=== PATIENT | female | born 1965 | race Two or more races ===

== ENCOUNTER 2025-07-22 15:07 | Emergency (ER) | payer OTHER ==
[~2025-07-22] VITALS: Ht 149.9 cm; Wt 71.3 kg
[2025-07-22 15:38] VITALS: BP 158/82; PULSE 96; RESP 18; TEMP 98.3; O2SAT 99
--- NOTE | 2025-07-22 15:41 | ED.PDOC ---
Back pain HPI HPI Comments A 60 YEAR OLD FEMALE PRESENTS TO THE ED WITH COMPLAINT OF LOWER BACK PAIN. PATIENT STATES SHE HAS BEEN EXPERIENCING LOWER BACK PAIN THAT RADIATES DOWN HER BILATERAL LEGS FOR THE PAST 2 MONTHS. PATIENT REPORTS SHE HAS ALSO BEEN EXPERIENCING PAINFUL URINATION OFF AND ON FOR THE PAST 2 MONTHS. PATIENT DENIES SADDLE ANESTHESIA, URINARY INCONTINENCE, BOWEL INCONTINENCE, HEMATURIA, FLANK PAIN, FEVER, CHILLS, SHORTNESS OF BREATH, CHEST PAIN, ABDOMINAL PAIN, NAUSEA, VOMITING, HEADACHE, OR OTHER COMPLAINTS. NO OTHER SYMPTOMS OR MODIFYING FACTORS AT THIS TIME. PATIENT IS ALERT, ORIENTED X 4, AND HAS STEADY GAIT. Chief Complaint: Back Pain Time Seen by MD: 15:10 Reviewed Notes: Nurses Notes, Medications, Allergies Allergies: Coded Allergies: NO KNOWN ALLERGIES (Unverified , 07/22/25) Home Meds Active Scripts Sulfamethoxazole W/Trimethopri (Bactrim Ds Tablet) 1 Tab Tb, 1 TAB PO BID for 7 Days, #14 TAB Prov:LON CRUZ 07/22/25 Ibuprofen (Ibuprofen) 800 Mg Tab, 1 TAB PO TID, #30 TAB Prov:LON CRUZ 07/22/25 Information Source: Patient Mode of Arrival: Ambulatory Timing: Months Duration: Intermittent Location of Back pain: (B) Lumbar Radiates to: Anterior: (B) Buttocks, (B) Calf, (B) Thigh Radiates to: Posterior: (B) Buttocks, (B) Calf, (B) Thigh Radiates to: Medial: (R) Calf, (B) Calf, (B) Thigh Radiates to: Lateral: (B) Buttocks, (B) Calf, (B) Thigh Severity: Moderate Prehospital treatment: None Quality: Aching, Cramping Onset: Spontaneous History of: None Modifying Factors: Movement Associated signs and symptoms: None Past Medical History PAST MEDICAL HISTORY: HTN Surgical History: Denies all surgeries ASSEMBLY LEADER History: No Pertinent ASSEMBLY LEADER History Family History Family History: Reviewed,noncontributory to illness Social History Smoker: Non-Smoker Alcohol: Denies ETOH Use Drugs: Denies Drug Use Lives In: Home Constitutional: denies: chills, diaphoresis, fatigue, fever, malaise, sweats, weakness, others EENTM: denies: blurred vision, double vision, ear bleeding, ear discharge, ear drainage, ear pain, ear ringing, eye pain, eye redness, hearing loss, mouth pain, mouth swelling, nasal discharge, nose bleeding, nose congestion, nose pain, photophobia, tearing, throat pain, throat swelling, voice changes, others Respiratory: denies: cough, hemoptysis, orthopnea, SOB at rest, shortness of breath, SOB with excertion, stridor, wheezing, others Cardiovascular: denies: chest pain, dizzy spells, diaphoresis, Dyspnea on exertion, edema, irregular heart beat, left arm pain, lightheadedness, palpitations, PND, syncope, others Gastrointestinal: denies: abdomen distended, abdominal pain, blood streaked bowels, constipated, diarrhea, dysphagia, difficulty swallowing, hematemesis, melena, nausea, poor appetite, poor fluid intake, rectal bleeding, rectal pain, vomiting, others Genitourinary: reports: burning, dysuria; denies: abnormal vagina bleeding, dyspareunia, flank pain, frequency, hematuria, incontinence, pain, , vagina discharge, urgency, others Neurological: denies: dizziness, fainting, headache, left sided numbness, left sided weakness, numbness, paresthesia, pre-existing deficit, right sided numbness, right sided weakness, seizure, speech problems, tingling, tremors, weakness, others Musculoskeletal: reports: back pain, muscle pain; denies: gout, joint pain, joint swelling, muscle stiffness, neck pain, others Integumetry: denies: bruises, change in color, change in hair/nails, dryness, laceration, lesions, lumps, rash, wounds, others Allergic/Immunocompromised: denies: Difficulty Healing, Frequent Infections, Hives, Itching, others Hematologic/Lymphatic: denies: anemia, blood clots, easy bleeding, easy bruisi ng, swollen glands, others Endocrine: denies: excessive hunger, excessive sweating, excessive thirst, exce ssive urination, flushing, intolerance to cold, intolerance to heat, unexplained weight gain, unexplained weight loss, others Psychiatric: denies: anxiety, bipolar disorder, depression, hopeless, panic disorder, schizophrenia, sleepless, suicidal, others All Other Systems: Reviewed and Negative Physical Exam General Appearance: No Apparent Distress, Normal HEENT: Normal ENT Inspection, PERRL/EOMI, Pharynx Normal, TMs Normal Neck: Full Range of Motion, Non-Tender, Normal, Normal Inspection Respiratory: Chest Non-Tender, Lungs Clear, No Accessory Muscle Use, No Respiratory Distress, Normal Breath Sounds Cardiovascular: No Edema, No JVD, No Murmur, No Gallop, Normal Peripheral Pulses, Regular Rate/Rhythm Breast Exam: Deferred Gastrointestinal: No Organomegaly, Non Tender, No Pulsatile Mass, Normal Bowel Sounds, Soft Genitalia: Deferred Pelvic: Deferred Rectal: Deferred Extremities: No calf tenderness, Normal capillary refill, Normal inspection, Normal range of motion, Non-tender, No pedal edema Musculoskeletal : Location: Bilateral Extremity Location: Back Apperance: Tenderness (AND MUSCLE SPASM ON LOWER BACK, NO BONY TENDERNESS, SWELLING AND DEFORMITY. NO CVA TENDERNESS. ) Neurologic: Alert, earth burner II-XII nml as Tested, No Motor Deficits, Normal Affect, Normal Mood, No Sensory Deficits Cerebellar Function: Normal Reflexes: Normal Skin: Dry, Normal Color, Warm Peripheral Pulses: 2+ carotid (R), 2+ carotid (L) Lymphatic: No Adenopathy Was a procedure done? Was a procedure done?: No Back Pain Differential Dx Differential Diagnosis: DJD, Musculoskeletal Pain, Strain Other Differential Diagnosis UTI, ACUTE CYSTITIS X-Ray, Labs, Meds, VS Vital Signs Date Time Temp Pulse Resp B/P (MAP) Pulse Ox O2 Delivery O2 Flow Rate FiO2 07/22/25 15:38 96 18 99 Room Air 07/22/25 15:38 98.3 96 18 158/82 (107) 99 98.3 07/22/25 15:09 98.3 99 18 158/82 96 98.3 Lab Test 07/22/25 15:38 Range/Units Urine Color Dark-yellow Yellow Urine Clarity Clear Clear Urine pH 6.5 5.0-9.0 Urine Specific Leopold 1.009 1.001-1.035 Urine Protein Negative Negative Urine Ketones Negative Negative Urine Blood Negative Negative /uL Urine Nitrite 1+ H Negative Urine Bilirubin Negative Negative Urine Urobilinogen Normal Negative mg/dL Urine Leukocyte Esterase Negative Negative /uL Urine RBC 2 0 - 4 /hpf Urine Microscopic WBC < 1 0-5 /HPF Urine Squamous Epithelial Cells Few <5 /hpf Urine Bacteria Few H None Seen /hpf Urine Glucose Normal Normal mg/dL Current Medications Medications (Trade) Dose Ordered Sig/Mattie Route Start Time Stop Time Status Last Admin Ketorolac Tromethamine (Toradol Injection) 60 mg ONCE ONCE IM 07/22/25 15:45 07/22/25 15:46 DC 07/22/25 15:53 ORDERING PHYSICIAN: LON CRUZ PROCEDURE(s): LUMB2 - LUMBAR SPINE 3 VIEW REASON: LOW BACK PAIN TO LOWER LEGS ORDER NUMBER(s): [id number], ACCESSION NUMBER(s): [id number] CLINICAL INDICATION: LOW BACK PAIN TO LOWER LEGS TECHNIQUE: 3 radiographic views of the lumbar spine were obtained. COMPARISON: None FINDINGS/IMPRESSION: There are no compressed vertebra. No spondylolisthesis. ATED BY: SUKH MORA Jr., DO DICTATED DATE/TIME: 07/22/251627 SIGNED BY: SUKH MORA Jr., SIGNED DATE/TIME: 07/22/251627 CC: X-Ray, Labs, Meds, VS Comment EXTERNAL MEDICAL RECORDS REVIEWED: [NONE] INDEPENDENT HISTORIANS: [NONE] SOCIAL DETERMINANTS OF HEALTH: [NONE] LABS ORDERED: UA REVIEWED AND INTERPRETED RESULTS: NITRITE 1+ IMAGING ORDERED: XR L-SPINE TREATMENTS ORDERED: TORADOL 60MG IM PROCEDURES PERFORMED: NONE CRITICAL CARE TIME: NONE I HAVE DISCUSSED THE PATIENT WITH THE ATTENDING PHYSICIAN DR. MCLAUGHLIN AND HE AGREES WITH THE PATIENT'S PLAN OF CARE AND DISPOSITION. BASED ON HISTORY OF PRESENT ILLNESS, AND PHYSICAL EXAM, PATIENT WILL BE DISCHARGED HOME. DISCUSSED PLAN FOR DISCHARGE HOME WITH RX [SEPTA DS AND IBUPROFEN 800MG]. MEDICATION WARNINGS GIVEN. SHARED DECISION MAKING: DISCUSSED WITH PATIENT THAT THEIR WORKUP WAS NORMAL. PATIENT INSTRUCTED TO FOLLOW UP WITH PRIMARY CARE PROVIDER IN 1-2 DAYS FOR RE- EVALUATION OF SYMPTOMS. PATIENT VERBALIZES UNDERSTANDING TO RETURN TO ED FOR NEW OR WORSENING SYMPTOMS OR IF FOLLOW UP WITH PCP CANNOT BE OBTAINED. PATIENT FEELS COMFORTABLE GOING HOME AT THIS TIME. ALL QUESTIONS ADDRESSED AT TIME OF DISCHARGE. Images Reviewed?: Images reviewed and evaluated by me Time of 1ST Reevaluation: 16:52 Reevaluation 1ST: Improved Patient Education/Counseling: Diagnosis, Treatment, Need For Follow Up Family Education/Counseling: Diagnosis, Treatment, Need For Follow Up Medical Screening: No EMC Exist At This Time SEPSIS Sepsis Screen Date sepsis recognized/suspect: Jul 22, 2025 Time Sepsis recognized/suspect: 1512 Recent Procedure: No On Antibiotic Therapy: No Respiratory Rate >20: No Heart Rate >90: Yes Temp<36 C (96.8 F) or >38.3 C: No SBP <90 or MAP <65 mmHG: No New Acute Mental Status Change: No Is the patient on CPAP, BIPAP,: No Physician Orders Lumbar Spine 3 View (07/22/25 15:38) Vital Signs Date Time Temp Pulse Resp B/P (MAP) Pulse Ox O2 Delivery O2 Flow Rate FiO2 07/22/25 15:38 96 18 99 Room Air 07/22/25 15:38 98.3 96 18 158/82 (107) 99 98.3 07/22/25 15:09 98.3 99 18 158/82 96 98.3 Medications Medications Dose Ordered Sig/Mattie Route Start Time Stop Time Status Last Admin Dose Admin Ketorolac Tromethamine 60 mg ONCE ONCE IM 07/22/25 15:45 07/22/25 15:46 DC 07/22/25 15:53 Departure 1 Departure Time of Disposition: 16:53 Impression: Primary Impression: Acute low back pain with bilateral sciatica Qualified Codes: M54.42 - Lumbago with sciatica, left side; M54.41 - Lumbago with sciatica, right side Additional Impression: Acute UTI (urinary tract infection) Disposition: 01 HOME / SELF CARE / HOMELESS Condition: Stable Additional Instructions: FOLLOW-UP WITH PCP IN 1 TO 2 DAYS. TAKE MEDICATIONS PRESCRIBED. RETURN TO ED FOR ANY NEW OR WORSENING SYMPTOMS. e-Prescriptions Sulfamethoxazole W/Trimethopri (Bactrim Ds Tablet) 1 Tab Tb 1 TAB PO BID for 7 Days, #14 TAB Prov: LON CRUZ 07/22/25 Ibuprofen (Ibuprofen) 800 Mg Tab 1 TAB PO TID, #30 TAB Prov: LON CRUZ 07/22/25 Discharged With: Self Critical Care Note Critical Care Time?: No Stability Stability form required: No I personally scribed for LON CRUZ ([email or web address]) on 07/22/25 at 15:41. Electronically submitted by Melo Singh ([email or web address]). I personally scribed for LON CRUZ ([email or web address]) on 07/22/25 at 16:39. Electronically submitted by Melo Singh (BRAN). LON CRUZ Jul 22, 2025 15:41
[2025-07-22] MEDS: KETOROLAC TROMETH 60MG/2ML VIAL IM ONE (15:53)
[2025-07-22 16:29] LABS: Urine Protein, UAD Negative (Negative)
--- NOTE | 2025-07-22 16:30 | DVH ---
CLINICAL INDICATION: LOW BACK PAIN TO LOWER LEGS TECHNIQUE: 3 radiographic views of the lumbar spine were obtained. COMPARISON: None FINDINGS/IMPRESSION: There are no compressed vertebra. No spondylolisthesis.
[2025-07-22] MEDS ORDERED: BACDST PO (16:52)
[2025-07-22] MEDS ORDERED: IBUP-1456 PO (16:52)
== END 2025-07-22 16:55 | disposition home or self-care (01) ==
LOC: ER 15:07
DX: M54.41 Lumbago with sciatica, right side (principal); M54.42 Lumbago with sciatica, left side; N39.0 Urinary tract infection, site not specified; I10 Essential (primary) hypertension
CPT/HCPCS: 72100; 81001; 96372; 99284; J1885